=== PATIENT | female | born 1985 | race Caucasian/White ===

== ENCOUNTER → 2018-02-25 | Emergency (ER) | payer BC ==
[~2018-02-25] VITALS: Ht 157.5 cm; Wt 83.0 kg
[~2018-02-25] MED LIST: PRENATAL 19 TA1 EACH PO
--- NOTE | ~2018-02-25 | EKG ---
[place] [address] [facility] [address] [address] ELECTROCARDIOGRAM REPORT Name: GORDOALBERT Room #: [id number] Admission: 02/25/18 Attend Phys: Discharge: Date of : 89 Report #: [id number] THIS REPORT FOR: //name// [facility] ED Test Date: 2018-02-25 Test Time: 12:14:54 Pat Name: ALBERT CARO Department: Room: Gender: Video Control Engineer: MONISHA : 1985 Requested By: Tobi Alfonso Order Number: [id number] MD: Joel Da Silva Measurements Intervals Mabel Rate: 77 P: 79 LA: 138 QRS: 53 QRSD: 105 T: 36 QT: 362 QTc: 410 Interpretive Statements Sinus rhythm RSR' in V1 or V2, right VCD or RVH No previous ECG available for comparison Electronically Signed On 02-25-2018 13:00:00 CDT by Joel Da Silva [email or web address] <ELECTRONICALLY SIGNED> By: Joel Da Silva MD 02/25/18 1300 1214 1214 MD MELO Raines
[2018-02-25 11:45] LABS: URINE BILIRUBIN NEGATIVE (Negative); URINE BLOOD NEGATIVE (Negative); URINE CLARITY CLEAR; URINE COLOR YELLOW; URINE GLUCOSE-RANDOM* NEGATIVE (Negative); URINE KETONES NEGATIVE (Negative); URINE LEUKOCYTES-REFLEX NEGATIVE (Negative); URINE NITRITE-REFLEX NEGATIVE (Negative); URINE PROTEIN (DIPSTICK) NEGATIVE (Negative); URINE SPECIFIC GRAVITY 1.025 (1.005-1.035); URINE UROBILINOGEN 0.2 E.U./dl (0.2-1.0)
[2018-02-25 12:29] LABS: ABSOLUTE NEUTROPHILS 6.4 thou/uL (1.4-8.2); BASOPHILS 0.7 % (0.0-2.0); EOSINOPHILS 1.2 % (0.0-3.0); HEMATOCRIT 37.3 % (37.0-47.0); HEMOGLOBIN 13.2 gm/dL (12.0-15.0); LYMPHOCYTES 20.6 % (24.0-44.0); MCH 31.3 pg (26.0-34.0); MCHC 35.5 g/dL (28.0-37.0); MCV 88.1 fL (80.0-100.0); MONOCYTES 5.5 % (1.0-8.0); PLATELET COUNT 164 thou/uL (150-400); RBC 4.23 mil/uL (4.20-5.00); RDW 13.2 % (10.5-14.5)
[2018-02-25 12:35] LABS: POTASSIUM 3.6 mmol/L (3.5-5.1)
[2018-02-25 12:36] LABS: CALCIUM 9.4 mg/dL (8.5-10.1); CREATININE 0.5 mg/dL (0.6-1.0)
[2018-02-25 14:03] VITALS: BP 109/52
== END ==
LOC: ER 10:50
PROVIDERS: Emergency Medicine
DX: O26.892 Other specified pregnancy related conditions, second trimester (principal); R42 Dizziness and giddiness; Z88.5 Allergy status to narcotic agent; Z3A.14 14 weeks gestation of pregnancy